=== PATIENT | female | born 1990 | race Two or more races ===

== ENCOUNTER 2018-03-27 18:44 | Emergency (ER) | payer OTHER ==
[~2018-03-27] VITALS: Ht 170.2 cm; Wt 80.0 kg
[2018-03-27] MEDS ORDERED: PROP10TA73 PO (19:00)
[2018-03-27] MEDS ORDERED: METAMIZOLE PO (19:00)
[2018-03-27 19:28] VITALS: BP 141/83
[2018-03-27] MEDS ORDERED: BACITRACIN 0.9 GM PACKET OINTMENT TP ONE (19:30)
[2018-03-27] MEDS ORDERED: KETOROLAC TROMETHAMINE 10 MG TABLET PO ONE (19:30)
== END 2018-03-27 19:30 | disposition home or self-care (01) ==
LOC: EMS 18:46
DX: S80.01XA Contusion of right knee, initial encounter (principal); E05.90 Thyrotoxicosis, unspecified without thyrotoxic crisis or storm; Z88.0 Allergy status to penicillin; W18.39XA Other fall on same level, initial encounter; Y93.89 Activity, other specified; Y92.89 Other specified places as the place of occurrence of the external cause; Y99.8 Other external cause status
CPT/HCPCS: 99283